=== PATIENT | male | born 1960 | race Two or more races ===

== ENCOUNTER 2022-05-10 17:02 | Emergency (ER) | payer SELFPAY ==
[~2022-05-10] VITALS: Ht 180.3 cm; Wt 91.6 kg
--- NOTE | 2022-05-10 17:42 | NUR ---
[id number] FROM THE [address]REET FOR ETOH. THE PATIENT ADMITS DRINKING ALCOHOL. THE PATIENT IS ALERT AND ORIENTED X1. DENIES PAIN. IN ROOM AIR AND DENIES SOB. RESPIRATION REGULAR AND UNLABORED. THE PATIENT IS ATTACHED TO THE MONITOR. WILL CONTINUE TO MONITOR THE PATIENT.
--- NOTE | 2022-05-10 19:41 | NUR ---
Pt ambulatory with a steady gait, VSS, A/0 X 4. NO ACUTE DISTRESS NOTED
[2022-05-10 19:47] VITALS: BP 147/80
--- NOTE | 2022-05-10 19:47 | NUR ---
Patient discharged to home in stable condition. Written and verbal after care instructions given. Patient verbalizes understanding of instruction.
== END 2022-05-10 19:51 | disposition home or self-care (01) ==
LOC: ER 17:07
DX: F10.129 Alcohol abuse with intoxication, unspecified (principal); I10 Essential (primary) hypertension; I48.91 Unspecified atrial fibrillation; Y90.9 Presence of alcohol in blood, level not specified

== ENCOUNTER 2022-12-08 01:28 | Emergency (ER) | payer SELFPAY ==
[~2022-12-08] VITALS: Ht 180.3 cm; Wt 99.8 kg
[2022-12-08 01:45] VITALS: BP 120/56
--- NOTE | 2022-12-08 04:00 | NUR ---
Pt ambulatory with a steady gait
--- NOTE | 2022-12-08 04:05 | NUR ---
Patient discharged to home in stable condition. Written and verbal after care instructions given. Patient verbalizes understanding of instruction.
== END 2022-12-08 04:12 | disposition home or self-care (01) ==
LOC: ER 01:33
DX: S00.81XA Abrasion of other part of head, initial encounter (principal); F10.129 Alcohol abuse with intoxication, unspecified; I10 Essential (primary) hypertension; I48.91 Unspecified atrial fibrillation; F17.200 Nicotine dependence, unspecified, uncomplicated; Z60.2 Problems related to living alone; X58.XXXA Exposure to other specified factors, initial encounter; Y93.89 Activity, other specified; Y92.89 Other specified places as the place of occurrence of the external cause; Y99.8 Other external cause status; Y90.9 Presence of alcohol in blood, level not specified